=== PATIENT | female | born 1950 | race Caucasian/White ===

== ENCOUNTER 2018-11-10 17:14 | Emergency (ER) | payer MEDICARE ==
[~2018-11-10] VITALS: Ht 170.2 cm; Wt 104.3 kg
--- NOTE | 2018-11-10 17:46 | ED Chest Pain ---
General Chief Complaint: Chest Pain Stated Complaint: CHEST PAIN Nursing Triage Note: PT WAS SHOPPING AT [employer] AND STARTED HAVING CHEST PRESSURE. HURTS TO TAKE IN A DEEP BREATH. Nursing Sepsis Screen: No Definite Risk Source: patient Exam Limitations: no limitations (CADY MEDINA DO) History of Present Illness Date Seen by Provider: November 10, 2018 Time Seen by Provider: 17:25 Initial Comments 67-year-old female presents with chest pressure. Patient reports she was shopping at [employer] and unloading some groceries. She developed some substernal chest pressure, got short of breath, got very diaphoretic, mild nausea. She also felt like her left arm was a little bit weak when it happened. She reports that it hurts to take a deep breath. She denies any fever or chills. She reports she had a similar episode of this in the past when she went into atrial fibrillation because she had a urinary tract infection. Patient does report some mild dysuria. Patient reports the symptoms improved with rest and is better now. She does have a history of COPD and uses an inhaler. (CADY MEDINA DO) Allergies and Home Medications Allergies Coded Allergies: insulin glargine (Verified Allergy, Intermediate, shortness of breath, 11/10/18) morphine (Verified Allergy, Intermediate, confusion, 11/10/18) umeclidinium (Verified Allergy, Intermediate, palpitations, 11/10/18) vilanterol (Verified Allergy, Intermediate, palpitations, 11/10/18) albuterol (Verified Allergy, Mild, tachycardia, 11/10/18) ipratropium (Verified Allergy, Mild, tachycardia, 11/10/18) Uncoded Allergies: PROAIR (Allergy, Mild, palpitations, 11/10/18) Patient Home Medication List Home Medication List Reviewed: Yes (CADY MEDINA DO) Review of Systems Review of Systems Constitutional: No chills; diaphoresis; No dizziness, No fever EENTM: No Symptoms Reported Respiratory: Denies Cough; Shortness of Air Cardiovascular: Chest Pain; Denies Irregular Heart Rate, Denies Lightheadedness, Denies Palpitations Gastrointestinal: Nausea; Denies Vomiting Genitourinary: Burning Musculoskeletal: see HPI Skin: no symptoms reported Psychiatric/Neurological: No Symptoms Reported Endocrine: No Symptoms Reported (MEDINA,CADY L DO) Past Inqhcgn-Pjxehk-Zpowsd Hx Past Med/Social Hx: Reviewed Nursing Past Med/Soc Hx (CADY MEDINA DO) Patient Social History Recent Foreign Travel: No Contact w/Someone Who Travel: No Recent Infectious Disease Expo: No Physical Abuse: No Sexual Abuse: No Mistreated: No Fear: No (CADY MEDINA DO) Physical Exam Vital Signs Vital Signs - First Documented 11/10/18 17:35 Temp 98.3 Pulse 87 Resp 18 B/P (MAP) 141/64 (89) Pulse Ox 99 O2 Delivery Room Air (MIRELLAKATLYNSAI Yuli DO) Vital Signs Capillary Refill : Less Than 3 Seconds (CADY MEDINA DO) Height, Weight, BMI Height: 5'7.00" Weight: 230lbs. oz. 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 Skin: Normal Color, Warm/Dry (CADY MEDINA DO) Progress/Results/Core Measures Results/Orders Lab Results Laboratory Tests Test 11/10/18 17:29 11/10/18 18:50 Range/Units White Blood Count 12.0 H 4.3-11.0 10^3/uL Red Blood Count 4.01 L 4.35-5.85 10^6/uL Hemoglobin 12.2 11.5-16.0 G/DL Hematocrit 38 35-52 % Mean Corpuscular Volume 94 80-99 FL Mean Corpuscular Hemoglobin 30 25-34 PG Mean Corpuscular Hemoglobin Concent 32 32-36 G/DL Red Cell Distribution Width 14.6 H 10.0-14.5 % Platelet Count 248 130-400 10^3/uL Mean Platelet Volume 9.2 7.4-10.4 FL Neutrophils (%) (Auto) 70 42-75 % Lymphocytes (%) (Auto) 23 12-44 % Monocytes (%) (Auto) 6 0-12 % Eosinophils (%) (Auto) 1 0-10 % Basophils (%) (Auto) 0 0-10 % Neutrophils # (Auto) 8.5 H 1.8-7.8 X 10^3 Lymphocytes # (Auto) 2.8 1.0-4.0 X 10^3 Monocytes # (Auto) 0.7 0.0-1.0 X 10^3 Eosinophils # (Auto) 0.1 0.0-0.3 10^3/uL Basophils # (Auto) 0.0 0.0-0.1 10^3/uL Prothrombin Time 14.0 12.2-14.7 SEC INR Comment 1.0 0.8-1.4 Activated Partial Thromboplast Time 41 H 24-35 SEC Sodium Level 135 135-145 MMOL/L Potassium Level 3.9 3.6-5.0 MMOL/L Chloride Level 97 L 98-107 MMOL/L Carbon Dioxide Level 27 21-32 MMOL/L Anion Gap 11 5-14 MMOL/L Blood Urea Nitrogen 18 7-18 MG/DL Creatinine 1.01 0.60-1.30 MG/DL Estimat Glomerular Filtration Rate 55 BUN/Creatinine Ratio 18 Glucose Level 118 H 70-105 MG/DL Calcium Level 8.6 8.5-10.1 MG/DL Corrected Calcium 8.6 8.5-10.1 MG/DL Magnesium Level 2.2 1.8-2.4 MG/DL Total Bilirubin 0.7 0.1-1.0 MG/DL Aspartate Amino Transf (AST/SGOT) 28 5-34 U/L Alanine Aminotransferase (ALT/SGPT) 23 0-55 U/L Alkaline Phosphatase 146 H 40-136 U/L Troponin T 13 H <=10 NG/L Total Protein 7.3 6.4-8.2 GM/DL Albumin 4.0 3.2-4.5 GM/DL Urine Color YELLOW Urine Clarity CLEAR Urine pH 6.0 5-9 Urine Specific [place] <=1.005 1.016-1.022 Urine Protein NEGATIVE NEGATIVE Urine Glucose (UA) NEGATIVE NEGATIVE Urine Ketones NEGATIVE NEGATIVE Urine Nitrite NEGATIVE NEGATIVE Urine Bilirubin NEGATIVE NEGATIVE Urine Urobilinogen 0.2 NORMAL MG/DL Urine Leukocyte Esterase 1+ H NEGATIVE Urine RBC (Auto) TRACE-L NEGATIVE Urine RBC RARE /HPF Urine WBC 25-50 H /HPF Urine Squamous Epithelial Cells 2-5 /HPF Urine Crystals NONE /LPF Urine Bacteria FEW H /HPF Urine Casts NONE /LPF Urine Mucus NEGATIVE /LPF Urine Culture Indicated YES (SAI BOSTON DO) My Orders Orders - SAI BOSTON DO Heparin Drip 71578 Unit/500ml (Heparin (11/10/18 19:01) Heparin (Bolus Per Protocol) (Heparin (B (11/10/18 19:01) Levofloxacin 750 Mg/150 Ml Iv (Levaquin (11/10/18 19:45) Levofloxacin Tablet (Levaquin Tablet) (11/10/18 20:00) Levofloxacin Tablet (Levaquin Tablet) (11/10/18 20:11) Heparin Drip [id number] Unit/500ml (Heparin (11/10/18 19:57) Heparin (Bolus Per Protocol) (Heparin (B (11/10/18 19:57) (SAI BOSTON DO) Medications Given in ED Current Medications Medications Dose Ordered Sig/Dany Route Start Time Stop Time Status Last Admin Dose Admin Heparin Sodium (Porcine) HEPARIN BOLUS ACS PROTOC... 1901 ONCE IV 11/10/18 19:01 11/10/18 20:50 DC 11/10/18 20:09 5,000 UNIT Heparin Sodium/ Dextrose 500 ml @ 0 mls/hr Q0M ONCE IV 11/10/18 19:01 11/10/18 20:50 DC 11/10/18 20:13 20 MLS/HR Levofloxacin 500 mg STK-MED ONCE .ROUTE 11/10/18 20:11 11/10/18 20:16 DC 11/10/18 20:17 500 MG (SAI BOSTON DO) Vital Signs/I&O 11/10/18 11/10/18 17:35 17:49 Temp 98.3 98.3 Pulse 87 82 Resp 18 16 B/P (MAP) 141/64 (89) 124/68 (86) Pulse Ox 99 99 O2 Delivery Room Air Room Air (SAI BOSTON DO) Blood Pressure Mean: 89 Progress Progress Note : Progress Note INA from preceding ER physician. On my evaluation pt is CP free. She reports concerning anginal chest pain. She has never had a cath. She will require hospitalization for continued cardiac evaluation. Her md pediatric allergist is at [facility] and she is requesting transfer to that facility. She has been hemodynamically stable while in the ED. She has no ST segment changes on her EKG. 1829: Discussed with Dr. Katz, on site services specialist hospitalist for [facility] transfer line. He requested that pt be started on Heparin gtt. ASA given. Has remained CP free. Will remain in ED pending arrangement of transportation. CXR as above with pleural effusions and ?infiltrates. Pt with no cough/fever. No hypoxia but seemed a little out of breath when getting up to the scale/restroom. Will cover with PO Levaquin and leave further management to admitting facility. 500mg tablets the only Levaquin available in this facility. 2101: At time of transfer from ED cot to EMS cot pt became obvious dsypneic and desat to 80s. Recovered with 3-5 minutes of rest/oxygen. no chest pain. Repeat EKG with no ST segment changes. Updated Dr. Katz. Advised of ABX given. Hemodynamically stable. (SAI BOSTON DO) Initial ECG Impression Date: November 10, 2018 Comment 1718: EKG : Comment EKG: #2: Sinus Rhythm, 2101: No acute ST segment changes (SAI BOSTON DO) Diagnostic Imaging Comments CXR IMPRESSION: Bibasilar infiltrates and probable small bilateral pleural effusions. (SAI BOSTON DO) Departure Impression Primary Impression: Chest pain on exertion Disposition: XFER SHT-TRM HOSP Condition: Stable Transfer Time Spoke to Accepting Phy: 18:48 Method of Transfer: EMS (SAI BOSTON DO) CADY MEDINA DO November 10, 2018 17:46 SAI BOSTON DO November 10, 2018 18:18
[2018-11-10 17:48] LABS: HEMATOCRIT 38 % (35-52); HEMOGLOBIN 12.2 G/DL (11.5-16.0); MEAN CORPUSCULAR HEMOGLOBIN 30 PG (25-34); MEAN CORPUSCULAR VOLUME 94 FL (80-99)
[2018-11-10 17:49] LABS: BASOPHILS % (AUTO) 0 % (0-10); EOSINOPHILS # (AUTO) 0.1 10^3/uL (0.0-0.3); EOSINOPHILS % (AUTO) 1 % (0-10); LYMPHOCYTES # (AUTO) 2.8 X 10^3 (1.0-4.0); LYMPHOCYTES % (AUTO) 23 % (12-44); MEAN CORPUSCULAR HGB CONC 32 G/DL (32-36); MEAN PLATELET VOLUME 9.2 FL (7.4-10.4); MONOCYTES # (AUTO) 0.7 X 10^3 (0.0-1.0); MONOCYTES % (AUTO) 6 % (0-12); NEUTROPHILS # (AUTO) 8.5 X 10^3 (1.8-7.8); NEUTROPHILS % (AUTO) 70 % (42-75); PLATELET COUNT 248 10^3/uL (130-400); RED CELL DISTRIBUTION WIDTH 14.6 % (10.0-14.5)
--- NOTE | 2018-11-10 17:56 | Diagnostic Imaging Report ---
INDICATION: Chest tightness and shortness of breath. No prior examinations are available for comparison. FINDINGS: There are patchy bibasilar infiltrates. There appear to be small bilateral pleural effusions. There is no pneumothorax. Heart size is normal. Mediastinum is unremarkable. IMPRESSION: Bibasilar infiltrates and probable small bilateral pleural effusions. Dictated by: Dictated on workstation # [id number]
[2018-11-10 18:07] LABS: BILIRUBIN,TOTAL 0.7 MG/DL (0.1-1.0); CALCIUM 8.6 MG/DL (8.5-10.1); CREATININE SERUM 1.01 MG/DL (0.60-1.30); MAGNESIUM 2.2 MG/DL (1.8-2.4); POTASSIUM 3.9 MMOL/L (3.6-5.0); TOTAL PROTEIN 7.3 GM/DL (6.4-8.2)
[2018-11-10] MEDS ORDERED: HEParin DRIP 25000 UNIT/500ML 500 ML IV ONE ×2 (19:01→19:57)
[2018-11-10] MEDS ORDERED: HEParin 1000 UNIT/ML (10ML VIAL) FOR BOLUS IV ONE (19:01)
[2018-11-10 19:16] LABS: COLOR,URINE YELLOW
[2018-11-10 19:17] LABS: BACTERIA,URINE FEW /HPF; BILIRUBIN,URINE NEGATIVE (NEGATIVE); CLARITY,URINE CLEAR; GLUCOSE, URINE (UA) NEGATIVE (NEGATIVE); KETONES,URINE NEGATIVE (NEGATIVE); LEUKOCYTE ESTERASE ,URINE 1+ (NEGATIVE); NITRITE,URINE NEGATIVE (NEGATIVE); PROTEIN,URINE NEGATIVE (NEGATIVE); RBC,URINE RARE /HPF; UROBILINOGEN,URINE 0.2 MG/DL (NORMAL); WBC,URINE 25-50 /HPF
[2018-11-10] MEDS ORDERED: LEVOFLOXACIN 750 MG/150 ML IV 150 ML IV ONE (19:45)
[2018-11-10] MEDS ORDERED: HEParin 1000 UNIT/ML (10ML VIAL) FOR BOLUS ONE (19:57)
[2018-11-10] MEDS ORDERED: LEVOFLOXACIN 750 MG TAB (LEVAQUIN) PO ONE (20:00)
[2018-11-10] MEDS ORDERED: LEVOFLOXACIN 500 MG TAB (LEVAQUIN) ONE (20:11)
[2018-11-10 21:10] VITALS: BP 135/65
== END 2018-11-10 21:10 | disposition short-term general hospital (02) ==
LOC: ER FS 17:16
DX: R07.1 Chest pain on breathing (principal); J44.9 Chronic obstructive pulmonary disease, unspecified; Z88.8 Allergy status to other drugs, medicaments and biological substances; Z88.5 Allergy status to narcotic agent
CPT/HCPCS: 36415; 71045; 80053; 81000; 83735; 84484; 85025; 85610; 85730; 87088; 93041

== ENCOUNTER 2019-08-27 03:23 | Emergency (ER) | payer MEDICARE ==
[~2019-08-27] VITALS: Ht 175.2 cm; Wt 111.0 kg
--- NOTE | 2019-08-27 04:14 | NUR ---
PT. REPORTED SHE HAS A CT SCHEDULED ON MONDAY AT [facility] AND ON 09-25-19 SHE WILL HAVE A COLONOSCOPY.
--- NOTE | 2019-08-27 04:17 | NUR ---
PT IS ON ROOM AIR AND THE SATS ARE 94%
[2019-08-27] MEDS ORDERED: RT-ALBUTEROL/IPRATROPIUM 3 ML (DUONEB) VIAL INH ONE (04:30)
[2019-08-27 04:49] LABS: BASOPHILS % (AUTO) 0 % (0-10); EOSINOPHILS % (AUTO) 2 % (0-10); HEMATOCRIT 39 % (35-52); HEMOGLOBIN 12.3 G/DL (11.5-16.0); LYMPHOCYTES # (AUTO) 1.7 X 10^3 (1.0-4.0); LYMPHOCYTES % (AUTO) 16 % (12-44); MEAN CORPUSCULAR HEMOGLOBIN 29 PG (25-34); MEAN CORPUSCULAR HGB CONC 32 G/DL (32-36); MEAN CORPUSCULAR VOLUME 92 FL (80-99); MEAN PLATELET VOLUME 9.6 FL (7.4-10.4); MONOCYTES % (AUTO) 6 % (0-12); NEUTROPHILS % (AUTO) 76 % (42-75); PLATELET COUNT 285 10^3/uL (130-400); RED CELL DISTRIBUTION WIDTH 14.5 % (10.0-14.5); WHITE BLOOD COUNT 10.6 10^3/uL (4.3-11.0)
[2019-08-27 04:50] LABS: EOSINOPHILS # (AUTO) 0.2 10^3/uL (0.0-0.3); MONOCYTES # (AUTO) 0.6 X 10^3 (0.0-1.0)
[2019-08-27 05:01] LABS: INR 1.4 (0.8-1.4)
[2019-08-27 05:04] LABS: BILIRUBIN,URINE NEGATIVE (NEGATIVE); CLARITY,URINE SL CLOUDY; COLOR,URINE DARK YELLOW; GLUCOSE, URINE (UA) NEGATIVE (NEGATIVE); KETONES,URINE NEGATIVE (NEGATIVE); NITRITE,URINE NEGATIVE (NEGATIVE); PROTEIN,URINE TRACE (NEGATIVE)
[2019-08-27 05:05] LABS: BACTERIA,URINE TRACE /HPF; LEUKOCYTE ESTERASE ,URINE TRACE (NEGATIVE); WBC,URINE 25-50 /HPF
[2019-08-27 05:09] LABS: ALANINE AMINOTRANSFERASE 11 U/L (0-55); ALKALINE PHOSPHATASE 172 U/L (40-136); BILIRUBIN,TOTAL 0.7 MG/DL (0.1-1.0); BUN/CREATININE RATIO 20; CALCIUM 9.3 MG/DL (8.5-10.1); CARBON DIOXIDE 22 MMOL/L (21-32); CHLORIDE 97 MMOL/L (98-107); CREATININE SERUM 0.91 MG/DL (0.60-1.30); GFR ESTIMATED > 60; GLUCOSE 187 MG/DL (70-105); POTASSIUM 3.7 MMOL/L (3.6-5.0); SODIUM 136 MMOL/L (135-145)
[2019-08-27 05:10] LABS: ALBUMIN 3.9 GM/DL (3.2-4.5); TOTAL PROTEIN 7.4 GM/DL (6.4-8.2)
--- NOTE | 2019-08-27 05:27 | ED General ---
General Chief Complaint: - Urinary Stated Complaint: GENERAL PROBLEMS Nursing Triage Note: PT. REPORTED SHE WAS HAVING BLOOD IN HER URINE. PT WAS BROUGHT IN TO THE ER BY EMS. EMS REPORTED THE PT. SATS WERE 90% AFTER WALKING TO THE AMBULANCE AND FELT SOB SO THEY GAVE HER AN RT TREATMENT AND PLACED THE PT ON 02 AT 4 LITERS. PT. REPORTED SHE HAS HAD A COUGH, FEVER AND CHILLS OFF AND ON FOR 8-9 DAYS. Nursing Sepsis Screen: Possible Sepsis Risk Source of Information: Patient Exam Limitations: No Limitations History of Present Illness Date Seen by Provider: Aug 27, 2019 Time Seen by Provider: 04:00 Initial Comments Patient is a 68-year-old female with history of asthma and COPD who presents to the ED by EMS with complaints of hematuria. Patient also reports suprapubic pain. No history of kidney stones. No nausea vomiting, flank pain, fever chills or sweats. EMS was contacted, on their arrival patient walked front door and complained of shortness of breath. Reports he is a congestion, rhinorrhea, cough with clear productive sputum for the past 9-10 days. Patient states she is getting over the influenza. Initial O2 sat noted be 90%. Patient given breathing treatment per EMS on route. Patient denies chest pain, leg pain, swelling. History of WA of WA. Denies history of CHF, A. fib. Patient is on Xarelto. Timing/Duration: 1-3 Hours Severity: Moderate Associated Systoms: Cough Allergies and Home Medications Allergies Coded Allergies: insulin glargine (Verified Allergy, Intermediate, shortness of breath, 11/10/18) morphine (Verified Allergy, Intermediate, confusion, 11/10/18) umeclidinium (Verified Allergy, Intermediate, palpitations, 11/10/18) vilanterol (Verified Allergy, Intermediate, palpitations, 11/10/18) ipratropium (Verified Allergy, Mild, tachycardia, 11/10/18) Uncoded Allergies: PROAIR (Allergy, Mild, palpitations, 11/10/18) Patient Home Medication List Home Medication List Reviewed: Yes Review of Systems Review of Systems Constitutional: see HPI EENTM: see HPI Respiratory: see HPI Cardiovascular: see HPI Gastrointestinal: see HPI Genitourinary: see HPI Musculoskeletal: see HPI Skin: see HPI Psychiatric/Neurological: See HPI Hematologic/Lymphatic: See HPI Immunological/Allergic: see HPI All Other Systems Reviewed Negative Unless Noted: Yes Past Ihqzqrh-Mbaavi-Ftfrio Hx Past Med/Social Hx: Reviewed Nursing Past Med/Soc Hx Patient Social History Recent Foreign Travel: No Contact w/Someone Who Travel: No Recent Infectious Disease Expo: No Recent Hopitalizations: No Physical Abuse: No Sexual Abuse: No Mistreated: No Fear: No Seasonal Allergies Seasonal Allergies: No Past Medical History Appendectomy, Section, Gallbladder Respiratory: Yes Asthma, Pneumonia, COPD Cardiac: Yes Atrial Fibrillation, High Cholesterol, Hypertension Neurological: No Genitourinary: No Gastrointestinal: No Musculoskeletal: No Endocrine: Yes Diabetes, Insulin dep Are Your Blood Sugars Over 250: No HEENT: No Cancer: No Psychosocial: No Integumentary: No Blood Disorders: No Physical Exam Vital Signs Vital Signs - First Documented 08/27/19 03:34 Temp 37.1 Pulse 98 Resp 16 B/P (MAP) 174/83 (113) Pulse Ox 100 O2 Delivery Nasal Cannula O2 Flow Rate 2.00 Capillary Refill : Less Than 3 Seconds Height, Weight, BMI Height: 5'7.00" Weight: 230lbs. oz. 104.909541yz; 36.00 BMI Method:Stated General Appearance: Anxious Eyes: Bilateral Eye Normal Inspection, Bilateral Eye PERRL HEENT: PERRL/EOMI Neck: Full Range of Motion, Normal Inspection, Supple Respiratory: Decreased Breath Sounds, Rhonci Cardiovascular: Regular Rate, Rhythm, No Edema Gastrointestinal: Non Tender, Soft Rectal: Heme Negative Stool Back: Normal Inspection, No CVA Tenderness Extremity: No Pedal Edema Neurologic/Psychiatric: Alert, Oriented x3 Skin: Normal Color, Warm/Dry Progress/Results/Core Measures Suspected Sepsis Recent Fever Within 48 Hours: Yes Infection Criteria Present: Documented Infection New/Unexplained Altered Menta: No Sepsis Screen: Possible Sepsis Risk SIRS Temperature: Pulse: 98 Respiratory Rate: 16 Laboratory Tests 08/27/19 04:22: White Blood Count 10.6 Blood Pressure 174 /83 Mean: 113 Laboratory Tests 08/27/19 04:22: Creatinine 0.91, INR Comment 1.4, Platelet Count 285, Total Bilirubin 0.7 Results/Orders Lab Results Laboratory Tests Test 08/27/19 04:22 Range/Units White Blood Count 10.6 4.3-11.0 10^3/uL Red Blood Count 4.20 L 4.35-5.85 10^6/uL Hemoglobin 12.3 11.5-16.0 G/DL Hematocrit 39 35-52 % Mean Corpuscular Volume 92 80-99 FL Mean Corpuscular Hemoglobin 29 25-34 PG Mean Corpuscular Hemoglobin Concent 32 32-36 G/DL Red Cell Distribution Width 14.5 10.0-14.5 % Platelet Count 285 130-400 10^3/uL Mean Platelet Volume 9.6 7.4-10.4 FL Neutrophils (%) (Auto) 76 H 42-75 % Lymphocytes (%) (Auto) 16 12-44 % Monocytes (%) (Auto) 6 0-12 % Eosinophils (%) (Auto) 2 0-10 % Basophils (%) (Auto) 0 0-10 % Neutrophils # (Auto) 8.0 H 1.8-7.8 X 10^3 Lymphocytes # (Auto) 1.7 1.0-4.0 X 10^3 Monocytes # (Auto) 0.6 0.0-1.0 X 10^3 Eosinophils # (Auto) 0.2 0.0-0.3 10^3/uL Basophils # (Auto) 0.0 0.0-0.1 10^3/uL Prothrombin Time 18.0 H 12.2-14.7 SEC INR Comment 1.4 0.8-1.4 Urine Color DARK YELLOW Urine Clarity SL CLOUDY Urine pH 6.0 5-9 Urine Specific [place] >=1.030 1.016-1.022 Urine Protein TRACE H NEGATIVE Urine Glucose (UA) NEGATIVE NEGATIVE Urine Ketones NEGATIVE NEGATIVE Urine Nitrite NEGATIVE NEGATIVE Urine Bilirubin NEGATIVE NEGATIVE Urine Urobilinogen 0.2 < = 1.0 MG/DL Urine Leukocyte Esterase TRACE H NEGATIVE Urine RBC (Auto) 1+ H NEGATIVE Urine RBC 10-25 H /HPF Urine WBC 25-50 H /HPF Urine Squamous Epithelial Cells 5-10 /HPF Urine Crystals NONE /LPF Urine Bacteria TRACE /HPF Urine Casts PRESENT /LPF Urine Hyaline Casts 10-25 H /LPF Urine Mucus MODERATE H /LPF Urine Culture Indicated YES Sodium Level 136 135-145 MMOL/L Potassium Level 3.7 3.6-5.0 MMOL/L Chloride Level 97 L 98-107 MMOL/L Carbon Dioxide Level 22 21-32 MMOL/L Anion Gap 17 H 5-14 MMOL/L Blood Urea Nitrogen 18 7-18 MG/DL Creatinine 0.91 0.60-1.30 MG/DL Estimat Glomerular Filtration Rate > 60 BUN/Creatinine Ratio 20 Glucose Level 187 H 70-105 MG/DL Calcium Level 9.3 8.5-10.1 MG/DL Corrected Calcium 9.4 8.5-10.1 MG/DL Total Bilirubin 0.7 0.1-1.0 MG/DL Aspartate Amino Transf (AST/SGOT) 14 5-34 U/L Alanine Aminotransferase (ALT/SGPT) 11 0-55 U/L Alkaline Phosphatase 172 H 40-136 U/L Troponin I < 0.30 <0.30 NG/ML Pro-B-Type Natriuretic Peptide 78.7 H <75.0 PG/ML Total Protein 7.4 6.4-8.2 GM/DL Albumin 3.9 3.2-4.5 GM/DL Micro Results Microbiology 08/27/19 Influenza Types A,B Antigen (LEIDA) - Final, Complete My Orders Orders - CECY CRUZ DO Ua Culture If Indicated (08/27/19 03:51) Chest 1 View Ap/Pa Only (08/27/19 03:51) Ekg Tracing (08/27/19 03:58) Cbc With Automated Diff (08/27/19 03:59) Comprehensive Metabolic Panel (08/27/19 03:59) Protime With Inr (08/27/19 03:59) Troponin I Fs (08/27/19 03:59) Probnp Fs (08/27/19 03:59) Blood Culture (08/27/19 03:59) Influenza A And B Antigens (08/27/19 03:59) Occult Blood Stool (08/27/19 03:59) Albuterol/Ipra Inhalation Soln (Duoneb I (08/27/19 04:30) Svn Small Volume Nebulizer (08/27/19 04:25) Urine Culture (08/27/19 04:22) Ceftriaxone For Iv Use (Rocephin For I (08/27/19 05:30) Medications Given in ED Current Medications Medications Dose Ordered Sig/Dany Route Start Time Stop Time Status Last Admin Dose Admin Albuterol/ Ipratropium 3 ml ONCE ONCE INH 08/27/19 04:30 08/27/19 04:31 DC 08/27/19 04:33 3 ML Vital Signs/I&O 08/27/19 03:34 Temp 37.1 Pulse 98 Resp 16 B/P (MAP) 174/83 (113) Pulse Ox 100 O2 Delivery Nasal Cannula O2 Flow Rate 2.00 Capillary Refill : Less Than 3 Seconds Blood Pressure Mean: 113 Point of Care Testing Fecal Occult: Negative Departure Communication (Admissions) EKG, chest x-ray, labs reviewed. Vital signs stable. Increased air movement, decreased rhonchi on repeat chest exam. IV antibiotics given for lower urinary tract infection. Recommend discharge home, close monitoring, PCP follow-up. Return precautions reviewed. Patient verbalizes understanding and agreement discharge instructions prior to discharge. Impression Primary Impression: Urinary tract infection Additional Impression: Bronchospasm with bronchitis, acute Disposition: HOME, SELF-CARE Condition: Improved Departure-Patient Inst. Decision time for Depature: 05:28 Referrals: NO,LOCAL PHYSICIAN (PCP/Family) Primary Care Physician Patient Instructions: Urinary Tract Infection, Adult (DC), Acute Bronchitis Add. Discharge Instructions: Please increase fluids, continue breathing treatment every 4-6 hours take antibiotics as directed. Follow-up with your PCP in 2-3 days for reevaluation. Return to ED if there are worsening symptoms. All discharge instructions reviewed with patient and/or family. Voiced understanding. Scripts Albuterol Sulfate (VENTOLIN HFA) 1 Puff Puff 2 PUFF INH Q4H, #1 INH 1 PUFF = 90 MCG Prov: CECY CRUZ DO 08/27/19 Cephalexin (Cephalexin) 500 Mg Tablet 500 MG PO TID, #21 TAB 0 Refills Prov: CECY CRUZ DO 08/27/19 CECY CRUZ DO Aug 27, 2019 05:27
[2019-08-27] MEDS ORDERED: cefTRIAXone FOR IV USE 1,000 MG in WATER (STERILE) FOR INJECTION 10 ML IV ONE (05:30)
[2019-08-27] MEDS ORDERED: CEPH500T PO (05:31)
[2019-08-27] MEDS ORDERED: RT-ALBUINH INH (05:31)
[2019-08-27 05:33] VITALS: BP 162/70
--- NOTE | 2019-08-27 07:15 | Diagnostic Imaging Report ---
EXAMINATION: Chest radiograph, portable AP view. DATE: 08/27/2019 4:17 AM hours. INDICATION: 68-year-old female, cough and fever. COMPARISON: November 10, 2018. FINDINGS: Heart size and mediastinal contours are unremarkable. There is no identified pneumothorax. There are gradients of attenuation overlying the mid and lower lung zones bilaterally. This appearance is similar to the comparison exam. This could relate to soft tissue overlap. There are persistent linear opacities in the right midlung most likely reflecting scarring and/or atelectasis. There is no definite interval focal airspace consolidation. IMPRESSION: 1. Gradients of attenuation overlying the mid to lower lung zones which may relate to soft tissue overlap. 2. No definite acute cardiopulmonary abnormality. Dictated by: Dictated on workstation # [id number]
--- OUTSIDE RECORDS SUMMARY | 2019-08-29 07:05 | XMS REPORT | Continuity of Care Document ---
Author Organization Unknown Address Unknown Phone Unavailable Allergies Active Description Code Type Severity Reaction Onset Reported/Identified Relationship to Patient Clinical Status Yes insulin glargine [id number] Drug Allergy Moderate shortness of br Yes morphine [id number] Drug Allergy Moderate confusion 11/10/2018 Yes umeclidinium [id number] Drug Allergy Moderate palpitations 11/10/2018 Yes vilanterol [id number] Drug Allerg y Moderate palpitations 11/10/2018 Yes albuterol [id number] Drug Allergy Mild tachycardia 11/10/2018 Yes ipratropium [id number] Drug Aller gy Mild tachycardia 11/10/2018 Yes PROAIR PROAIR Mild palpitations 11/10/2018 Medications There is no data. Problems Date Dx Coded Attending Type Code Diagnosis Diagnosed By 11/10/2018 SAI BOSTON DO T Ot J44.9 CHRONIC OBSTRUCTIVE PULMONARY DISEASE, U 11/10/2018 SAI BOSTON DO T Ot R07.1 CHEST PAIN ON BREATHING 11/10/2018 SAI BOSTON DO T Ot R07.89 OTHER CHEST PAIN 11/10/2018 SAI BOSTON DO T Ot Z88.5 ALLERGY STATUS TO NARCOTIC AGENT STATUS 11/10/2018 SAI BOSTON DO T Ot Z88.8 ALLERGY STATUS TO OTH DRUG/MEDS/BIOL SUB 11/14/2018 ADIS BOSTON DOINA T Ot J44.9 CHRONIC OBSTRUCTIVE PULMONARY DISEASE, U 11/14/2018 ADIS BOSTON DOINA T Ot R07.1 CHEST PAIN ON BREATHING 11/14/2018 SAI BOSTON DO T Ot R07.89 OTHER CHEST PAIN 11/14/2018 ADIS BOSTON DOINA T Ot Z88.5 ALLERGY STATUS TO NARCOTIC AGENT STATUS 11/14/2018 ADIS BOSTON DOINA T Ot Z88.8 ALLERGY STATUS TO OTH DRUG/MEDS/BIOL SUB 11/18/2018 ADIS BOSTON DOINA T Ot J44.9 CHRONIC OBSTRUCTIVE PULMONARY DISEASE, U 11/18/2018 SAI BOSTON DO Ot R07.1 CHEST PAIN ON BREATHING 11/18/2018 SAI BOSTON DO Ot R07.89 OTHER CHEST PAIN 11/18/2018 SAI BOSTON DO Ot Z88.5 ALLERGY STATUS TO NARCOTIC AGENT STATUS 11/18/2018 SAI BOSTON DO Ot Z88.8 ALLERGY STATUS TO OTH DRUG/MEDS/BIOL SUB Procedures There is no data. Results Test Result Range Complete blood count (CBC) with automate d white blood cell (WBC) differential - 11/10/18 17:29 Blood leukocytes automated count (number/volume) 12.0 10*3/uL 4.3-11.0 Blood erythrocytes automated count (number/volume) 4.01 10*6/uL 4.35-5.85 Venous blood hemoglobin measurement (mass/volume) 12.2 g/dL 11.5-16.0 Blood hematocrit (volume fraction) 38 % 35-52 Automated erythrocyte mean corpuscular volume 94 [ foz_us] 80-99 Automated erythrocyte mean corpuscular h emoglobin (mass per erythrocyte) 30 pg 25-34 Automated erythrocyte mean corpuscular h emoglobin concentration measurement (mass/volume) 32 g/dL 32-36 Automated erythrocyte distribution width ratio 14. 6 % 10.0- 14.5 Automated blood platelet count (count/volume) 248 10*3/uL 130-400 Automated blood platelet mean volume measurement 9.2 [foz_us] 7.4-10.4 Automated blood neutrophils/100 leukocytes 70 % 42-75 Automated blood lymphocytes/100 leukocytes 23 % 12-44 Blood monocytes/100 leukocytes 6 % 0-12 Automated blood eosinophils/100 leukocytes 1 % 0-10 Automated blood basophils/100 leukocytes 0 % 0-10 Blood neutrophils automated count (number/volume) 8.5 10*3 1.8-7.8 Blood lymphocytes automated count (number/volume) 2.8 10*3 1.0-4.0 Blood monocytes automated count (number/volume) 0. 7 10*3 0.0-1.0 Automated eosinophil count 0.1 10*3/uL 0 .0-0.3 Automated blood basophil count (count/volume) 0.0 10*3/uL 0.0-0.1 PT panel in platelet poor plasma by coag ulation assay - 11/10/18 17:29 Prothrombin time (PT) in platelet poor plasma by coagu lation assay 14.0 s 12.2-14.7 INR in platelet poor plasma or blood by coagulation as say 1.0 0.8-1.4 Activated partial thromboplastin time (a PTT) in platelet poor plasma bycoagulation assay - 11/10/18 17:29 Activated partial thromboplastin time (a PTT) in platelet poor plasma bycoagulation assay 41 s 24-35 Comprehensive metabolic panel - 11/10/18 17:29 Serum or plasma sodium measurement (moles/volume) 135 mmol/L 135-145 Serum or plasma potassium measurement (moles/volume) 3.9 mmol/L 3.6-5.0 Serum or plasma chloride measurement (moles/volume) 97 mmol/L 98-107 Carbon dioxide 27 mmol/L 21-32 Serum or plasma anion gap determination (moles/volume) 11 mmol/L 5-14 Serum or plasma urea nitrogen measurement (mass/volume ) 18 mg/dL 7-18 Serum or plasma creatinine measurement (mass/volume) 1.01 mg/dL 0.60-1.30 Serum or plasma urea nitrogen/creatinine mass ratio 18 NRG Serum or plasma creatinine measurement w ith calculation of estimated glomerular filtration rate 55 NRG Serum or plasma glucose measurement (mass/volume) 118 mg/dL 70-105 Serum or plasma calcium measurement (mass/volume) 8.6 mg/dL 8.5-10.1 Serum or plasma total bilirubin measurement (mass/volu me) 0.7 mg/dL 0.1-1.0 Serum or plasma alkaline phosphatase christopher surement (enzymatic activity/volume) 146 U/L 40-136 Serum or plasma aspartate aminotransfera se measurement (enzymatic activity/volume) 28 U/L 5-34 Serum or plasma alanine aminotransferase measurement (enzymatic activity/volume) 23 U/L 0-55 Serum or plasma protein measurement (mass/volume) 7.3 g/dL 6.4-8.2 Serum or plasma albumin measurement (mass/volume) 4.0 g/dL 3.2-4.5 CALCIUM CORRECTED 8.6 mg/dL 8.5-10.1 Magnesium - 11/10/18 17:29 Magnesium 2.2 mg/dL 1.8-2.4 TROPONIN T - 11/10/18 17:29 TROPONIN T 13 % <=10 Complete urinalysis with reflex to cultu re - 11/10/18 18:50 Urine color determination YELLOW NRG Urine clarity determination CLEAR NR G Urine pH measurement by test strip 6.0 5-9 Specific gravity of urine by test strip <= 1.016-1.022 Urine protein assay by test strip, semi-quantitative NEGATIVE NEGATIVE Urine glucose detection by automated test strip NE GATIVE NEGATIVE Erythrocytes detection in urine sediment by light micr oscopy TRACE-L NEGATIVE Urine ketones detection by automated test strip NE GATIVE NEGATIVE Urine nitrite detection by test strip NEGATIVE NEGATIVE Urine total bilirubin detection by test strip NEGA TIVE NEGATIVE Urine urobilinogen measurement by automated test strip (mass/volume) 0.2 mg/dL NORMAL Urine leukocyte esterase detection by dipstick 1+ NEGATIVE Automated urine sediment erythrocyte cou nt by microscopy (number/high power field) RARE NRG Automated urine sediment leukocyte count by microscopy (number/high power field) [HPF] NRG Bacteria detection in urine sediment by light microsco py FEW NRG Squamous epithelial cells detection in u rine sediment by light microscopy 2-5 NRG Crystals detection in urine sediment by light microsco py NONE NRG Casts detection in urine sediment by light microscopy NONE NRG Mucus detection in urine sediment by light microscopy NEGATIVE NRG Complete urinalysis with reflex to culture YES NRG Bacterial urine culture - 11/10/18 18:50 Bacterial urine culture 3 OR MORE NRG COLONY COUNT >100,000/ML NRG FTX;REPORTABLE GRAM POSITIVE ISOLATES; SUGGESTING NRG FREE TEXT ENTRY 2 PROBABLE COLLECTION CONTAMINATIO N WITH NRG FREE TEXT ENTRY 3 SKIN AMIRAH. NO SUSCEPTIBILITY PE RFORMED. NRG Complete blood count (CBC) with automate d white blood cell (WBC) differential - 08/27/19 04:22 Blood leukocytes automated count (number/volume) 10.6 10*3/uL 4.3-11.0 Blood erythrocytes automated count (number/volume) 4.20 10*6/uL 4.35-5.85 Venous blood hemoglobin measurement (mass/volume) 12.3 g/dL 11.5-16.0 Blood hematocrit (volume fraction) 39 % 35-52 Automated erythrocyte mean corpuscular volume 92 [ foz_us] 80-99 Automated erythrocyte mean corpuscular h emoglobin (mass per erythrocyte) 29 pg 25-34 Automated erythrocyte mean corpuscular h emoglobin concentration measurement (mass/volume) 32 g/dL 32-36 Automated erythrocyte distribution width ratio 14. 5 % 10.0- 14.5 Automated blood platelet count (count/volume) 285 10*3/uL 130-400 Automated blood platelet mean volume measurement 9.6 [foz_us] 7.4-10.4 Automated blood neutrophils/100 leukocytes 76 % 42-75 Automated blood lymphocytes/100 leukocytes 16 % 12-44 Blood monocytes/100 leukocytes 6 % 0-12 Automated blood eosinophils/100 leukocytes 2 % 0-10 Automated blood basophils/100 leukocytes 0 % 0-10 Blood neutrophils automated count (number/volume) 8.0 10*3 1.8-7.8 Blood lymphocytes automated count (number/volume) 1.7 10*3 1.0-4.0 Blood monocytes automated count (number/volume) 0. 6 10*3 0.0-1.0 Automated eosinophil count 0.2 10*3/uL 0 .0-0.3 Automated blood basophil count (count/volume) 0.0 10*3/uL 0.0-0.1 Influenza virus A and B antigen detectio n - 08/27/19 04:22 FLU RESULT NEGATIVE FOR INFLUENZA A AND B ANTIGENS BY IA NRG PT panel in platelet poor plasma by coag ulation assay - 08/27/19 04:22 Prothrombin time (PT) in platelet poor plasma by coagu lation assay 18.0 s 12.2-14.7 INR in platelet poor plasma or blood by coagulation as say 1.4 0.8-1.4 Complete urinalysis with reflex to cultu re - 08/27/19 04:22 Urine color determination DARK YELLOW N RG Urine clarity determination SL CLOUDY N RG Urine pH measurement by test strip 6.0 5-9 Specific gravity of urine by test strip >= 1.016-1.022 Urine protein assay by test strip, semi-quantitative TRACE NEGATIVE Urine glucose detection by automated test strip NE GATIVE NEGATIVE Erythrocytes detection in urine sediment by light micr oscopy 1+ NEGATIVE Urine ketones detection by automated test strip NE GATIVE NEGATIVE Urine nitrite detection by test strip NEGATIVE NEGATIVE Urine total bilirubin detection by test strip NEGA TIVE NEGATIVE Urine urobilinogen measurement by automated test strip (mass/volume) 0.2 mg/dL < = 1.0 Urine leukocyte esterase detection by dipstick TRA CE NEGATIVE Automated urine sediment erythrocyte cou nt by microscopy (number/high power field) [HPF] NRG Automated urine sediment leukocyte count by microscopy (number/high power field) [HPF] NRG Bacteria detection in urine sediment by light microsco py TRACE NRG Squamous epithelial cells detection in u rine sediment by light microscopy 5-10 NRG Crystals detection in urine sediment by light microsco py NONE NRG Casts detection in urine sediment by light microscopy PRESENT NRG Mucus detection in urine sediment by light microscopy MODERATE NRG Complete urinalysis with reflex to culture YES NRG Hyaline casts detection in urine sediment by light felipe roscopy 10-25 NRG Comprehensive metabolic panel - 08/27/19 04:22 Serum or plasma sodium measurement (moles/volume) 136 mmol/L 135-145 Serum or plasma potassium measurement (moles/volume) 3.7 mmol/L 3.6-5.0 Serum or plasma chloride measurement (moles/volume) 97 mmol/L 98-107 Carbon dioxide 22 mmol/L 21-32 Serum or plasma anion gap determination (moles/volume) 17 mmol/L 5-14 Serum or plasma urea nitrogen measurement (mass/volume ) 18 mg/dL 7-18 Serum or plasma creatinine measurement (mass/volume) 0.91 mg/dL 0.60-1.30 Serum or plasma urea nitrogen/creatinine mass ratio 20 NRG Serum or plasma creatinine measurement w ith calculation of estimated glomerular filtration rate > NRG Serum or plasma glucose measurement (mass/volume) 187 mg/dL 70-105 Serum or plasma calcium measurement (mass/volume) 9.3 mg/dL 8.5-10.1 Serum or plasma total bilirubin measurement (mass/volu me) 0.7 mg/dL 0.1-1.0 Serum or plasma alkaline phosphatase christopher surement (enzymatic activity/volume) 172 U/L 40-136 Serum or plasma aspartate aminotransfera se measurement (enzymatic activity/volume) 14 U/L 5-34 Serum or plasma alanine aminotransferase measurement (enzymatic activity/volume) 11 U/L 0-55 Serum or plasma protein measurement (mass/volume) 7.4 g/dL 6.4-8.2 Serum or plasma albumin measurement (mass/volume) 3.9 g/dL 3.2-4.5 CALCIUM CORRECTED 9.4 mg/dL 8.5-10.1 TROPONIN I FS - 08/27/19 04:22 TROPONIN I FS < 0.30 <0.30 PROBNP FS - 08/27/19 04:22 PROBNP FS 78.7 pg/mL <75.0 Bacterial blood culture - 08/27/19 04:22 Bacterial blood culture NG NRG Bacterial urine culture - 08/27/19 04:22 Bacterial urine culture 3 OR MORE NRG COLONY COUNT 90,000 CFU/ML NRG FTX;REPORTABLE GRAM POSITIVES, SUGGESTING PROBABLE NRG FREE TEXT ENTRY 2 COLLECTION CONTAMINATION WITH SK IN AMIRAH NRG FREE TEXT ENTRY 3 NO SUSCEPTIBILITY PERFORMED' NRG Encounters ACCT No. Visit Date/Time Discharge Status Pt. Type Provider Facility Loc./Unit Complaint [id number] 08/15/2019 13:30:00 08/15/2019 23:59: 59 CLS Outpatient SELF, [facility] [id number] 08/27/2019 03:31:00 020 05:35:00 DIS Emergency CECY CRUZ DO [facility] ER FS GENERAL PROBLEMS [id number] 11/10/2018 17:16:00 019 21:10:00 DIS Emergency SAI BOSTON DO [facility] ER FS CHEST PAIN
== END 2019-08-27 05:35 | disposition home or self-care (01) ==
LOC: EDUNIT# 03:23 → ER FS 03:31
DX: N39.0 Urinary tract infection, site not specified (principal); J20.9 Acute bronchitis, unspecified; I25.2 Old myocardial infarction; E11.9 Type 2 diabetes mellitus without complications; I48.91 Unspecified atrial fibrillation; Z79.01 Long term (current) use of anticoagulants; Z88.8 Allergy status to other drugs, medicaments and biological substances; Z88.5 Allergy status to narcotic agent; Z87.09 Personal history of other diseases of the respiratory system
CPT/HCPCS: 36415; 71045; 80053; 81000; 82274; 83880; 84484; 85025; 85610; 87040; 87088; 87804; 93005

== ENCOUNTER 2020-10-02 11:22 | Emergency (ER) | payer MEDICARE ==
[~2020-10-02] VITALS: Ht 170.1 cm; Wt 106.6 kg
[~2020-10-02 11:22] MED LIST: CEPH500T PO; RT-ALBUINH INH
--- NOTE | 2020-10-02 11:29 | ED General ---
General Stated Complaint: ALLERGIC REACTION History of Present Illness Date Seen by Provider: Oct 02, 2020 Time Seen by Provider: 11:24 Initial Comments 69-year-old female presents following a allergic/anaphylactic reaction after taking Bactrim. Patient had been prescribed Bactrim earlier for what sounds like a possible urinary tract infection. She stopped it before complete, felt like she was getting symptoms again so took an pill again today and had a reaction. Patient had rash, itching, wheezing. EMS was called. Upon arrival EMS gave her 0.3 mg of epi IM, 125 Solu-Medrol, 50 of Benadryl, albuterol and DuoNeb nebulizers. Patient symptoms are significantly better. He does still have some mild slight wheezing in her bases. She does have a history of asthma. Allergies and Home Medications Allergies Coded Allergies: sulfamethoxazole (Verified Allergy, Severe, 10/02/20) trimethoprim (Verified Allergy, Severe, 10/02/20) insulin glargine (Verified Allergy, Intermediate, shortness of breath, 11/10/18) morphine (Verified Allergy, Intermediate, confusion, 11/10/18) umeclidinium (Verified Allergy, Intermediate, palpitations, 11/10/18) vilanterol (Verified Allergy, Intermediate, palpitations, 11/10/18) ipratropium (Verified Allergy, Mild, tachycardia, 11/10/18) Uncoded Allergies: PROAIR (Allergy, Mild, palpitations, 11/10/18) Home Medications Albuterol Sulfate 1 Puff Puff, 2 PUFF INH Q4H 1 PUFF = 90 MCG Prescribed by: CECY CRUZ on 08/27/19530 Cephalexin 500 Mg Tablet, 500 MG PO TID Prescribed by: CECY CRUZ on 08/27/19530 Patient Home Medication List Home Medication List Reviewed: Yes Review of Systems Review of Systems Constitutional: No chills, No malaise EENTM: no symptoms reported Respiratory: short of breath, wheezing Cardiovascular: no symptoms reported Gastrointestinal: no symptoms reported Genitourinary: no symptoms reported Musculoskeletal: no symptoms reported Skin: see HPI, rash Psychiatric/Neurological: No Symptoms Reported Hematologic/Lymphatic: No Symptoms Reported Immunological/Allergic: no symptoms reported Past Ritzzlx-Liitfl-Cyjacm Hx Past Med/Social Hx: Reviewed Nursing Past Med/Soc Hx Patient Social History Recent Hopitalizations: No Seasonal Allergies Seasonal Allergies: No Past Medical History Appendectomy, Section, Gallbladder Respiratory: Yes Asthma, Pneumonia, COPD Cardiac: Yes Atrial Fibrillation, High Cholesterol, Hypertension Neurological: No Genitourinary: No Gastrointestinal: No Musculoskeletal: No Endocrine: Yes Diabetes, Insulin dep HEENT: No Cancer: No Psychosocial: No Integumentary: No Blood Disorders: No Physical Exam Vital Signs Vital Signs - First Documented 10/02/20 11:22 Temp 36.3 Pulse 71 Resp 15 B/P (MAP) 141/76 (97) Pulse Ox 98 O2 Delivery Room Air Capillary Refill : Height, Weight, BMI Height: 5'7.00" Weight: 230lbs. oz. 104.253667rm; 36.00 BMI Method:Stated General Appearance: No Apparent Distress Eyes: Bilateral Eye Normal Inspection HEENT: Pharynx Normal, Moist Mucous Membranes Neck: Non Tender Respiratory: No Accessory Muscle Use, No Respiratory Distress, Wheezing (mild bibasilar ) Cardiovascular: Regular Rate, Rhythm, No Edema Gastrointestinal: Non Tender Back: Normal Inspection, No CVA Tenderness Extremity: Normal Capillary Refill, Normal Inspection, Normal Range of Motion Neurologic/Psychiatric: Alert, Oriented x3, No Motor/Sensory Deficits Skin: Other (mild erythma that rapidly resolved ) Progress/Results/Core Measures Suspected Sepsis SIRS Temperature: Pulse: Respiratory Rate: Blood Pressure / Mean: Results/Orders Lab Results Laboratory Tests Test 10/02/20 12:15 10/02/20 15:34 Range/Units Glucometer 265 H 287 H 70-110 MG/DL My Orders Orders - CADY MEDINA L DO Magnesium 1 Gm/100 Ml Ivpb (Magnesium Crawford (10/02/20 11:45) Famotidine Injection (Pepcid Injection) (10/02/20 11:45) Medications Given in ED Current Medications Medications Dose Ordered Sig/Dany Route Start Time Stop Time Status Last Admin Dose Admin Famotidine 20 mg ONCE ONCE IVP 10/02/20 11:45 10/02/20 11:46 DC 10/02/20 11:48 20 MG Vital Signs/I&O 10/02/20 10/02/20 11:22 15:32 Temp 36.3 36.3 Pulse 71 83 Resp 15 15 B/P (MAP) 141/76 (97) 137/60 (97) Pulse Ox 98 94 O2 Delivery Room Air Room Air Capillary Refill : Progress Note : Time: 15:21 Progress Note Patient is doing significantly better. No further reactions while here in ER. Patient stable to be discharged home. Recommend she continue with Benadryl every 4-6 hours for the next 24 hours. She needs to be sure to put Bactrim on her allergy list Departure Impression Primary Impression: Allergic reaction to sulfonamide Disposition: HOME, SELF-CARE Condition: Stable Departure-Patient Inst. Referrals: NO,LOCAL PHYSICIAN (PCP/Family) Primary Care Physician Patient Instructions: Anaphylaxis, Drug Allergy Add. Discharge Instructions: Please be sure to put Bactrim on your known allergy list Benadryl 50 mg every 4-6 hours for the next 24 hours Return to the ER as needed CADY MEDINA DO Oct 02, 2020 11:29
[2020-10-02] MEDS ORDERED: FAMOTIDINE 20MG/2ML IV (PEPCID) IVP ONE (11:45)
[2020-10-02] MEDS: MAGNESIUM 1 GM/100 ML IVPB 100 ML IV SCH ×2 (11:48→12:11)
[2020-10-02 15:32] VITALS: BP 137/60
== END 2020-10-02 15:32 | disposition home or self-care (01) ==
LOC: EDUNIT# 11:22 → ER FS 11:23
DX: T88.6XXA Anaphylactic reaction due to adverse effect of correct drug or medicament properly administered, initial encounter (principal); T37.0X5A Adverse effect of sulfonamides, initial encounter; J44.9 Chronic obstructive pulmonary disease, unspecified; I10 Essential (primary) hypertension; Z88.2 Allergy status to sulfonamides; Z88.1 Allergy status to other antibiotic agents; Z88.5 Allergy status to narcotic agent; Z88.8 Allergy status to other drugs, medicaments and biological substances
CPT/HCPCS: 82962